=== PATIENT | female | born 1945 | race Caucasian/White ===

== ENCOUNTER 2018-02-14 13:34 | Outpatient (CLI) | payer MEDICARE, BC | END 2018-02-14 13:35 | disposition home or self-care (01) | LOC: BICCT 13:34 | PROVIDERS: ATTEND Psychiatry & Neurology Neurology | DX: M47.816 Spondylosis without myelopathy or radiculopathy, lumbar region (principal); M99.83 Other biomechanical lesions of lumbar region; M43.16 Spondylolisthesis, lumbar region | CPT/HCPCS: 72131 ==

== ENCOUNTER 2018-03-04 14:24 | Outpatient (CLI) | payer MEDICARE, BC ==
--- NOTE | 2018-03-04 15:54 | RAD ---
RIGHT SHOULDER 3 VIEWS: HISTORY: Right shoulder pain. FINDINGS: There are degenerative changes in the acromioclavicular joint. No fracture, dislocation, or bony juan pablo truction is seen. POS: [facility]
--- NOTE | 2018-03-04 16:04 | RAD ---
CERVICAL SPINE FIVE VIEWS: HISTORY: Neck pain. FINDINGS: Degenerative changes are seen, most prominent at the C5-C6 level. No acute fracture, subluxation, or bony destruction is identified. IMPRESSION: Cervical spondylosis. POS: [facility]
== END 2018-03-04 14:25 | disposition home or self-care (01) ==
LOC: RAD-FRANK 14:24
PROVIDERS: ATTEND Nurse Practitioner Family
DX: M54.2 Cervicalgia (principal); M25.511 Pain in right shoulder; M47.892 Other spondylosis, cervical region; M19.011 Primary osteoarthritis, right shoulder
CPT/HCPCS: 72040

== ENCOUNTER 2018-04-12 11:09 | Outpatient (CLI) | payer MEDICARE, BC ==
--- NOTE | 2018-04-12 12:43 | RAD ---
CERVICAL SPINE 5 VIEWS: Lateral views were obtained in the neutral, flexion, and extension positions. FINDINGS: Cervical vertebrae maintain height and alignment. There is loss of disk space and mild to moderate d egenerative changes at C5-6. The other disk spaces are preserved. No significant listhesis or sublu xation noted on flexion or extension. IMPRESSION: Mild to moderate degenerative changes at C5-6 with loss of disk space and hypertrophic spurring at th is level. POS: [facility]
--- NOTE | 2018-04-12 12:45 | RAD ---
LUMBAR SPINE FOUR VIEWS: INDICATIONS: Low back pain. TECHNIQUE: A lateral view was taken in neutral, flexion, and extension positions. FINDINGS: Slight curvature to the left in the AP projection with apex at L1. Mild degenerative changes with mi ld spurring from the lumbar vertebrae. On the lateral view, there is loss of disk space at all levels of the lumbar spine, most prominent at L4-L5 and at L5-S1. There is mild anterolisthesis at L4-L5. Facet hypertrophy is prominent at L4-L 5 and at L5-S1. The anterolisthesis at L4-L5 appears to exacerbate slightly with flexion, changing f rom 5 to 7 mm. IMPRESSION: Moderate degenerative changes of the lumbar spine, with mild anterolisthesis at L4-L5, as noted. POS: [facility]
== END 2018-04-12 11:10 | disposition home or self-care (01) ==
LOC: RAD 11:09
PROVIDERS: ATTEND Physician Assistant Surgical
DX: M51.16 Intervertebral disc disorders with radiculopathy, lumbar region (principal); M43.16 Spondylolisthesis, lumbar region; M47.22 Other spondylosis with radiculopathy, cervical region
CPT/HCPCS: 72050; 72120

== ENCOUNTER 2018-04-26 12:17 | Day surgery (SDC) | payer MEDICARE, BC ==
[2018-04-11 12:08] VITALS: BMI 36.6
[~2018-04-26 12:17] MED LIST: PROPOFOL 200 MG/20 ML VIAL ONE
--- NOTE | 2018-04-26 16:25 | MRI ---
MRI CERVICAL SPINE NONCONTRAST: Date: 04/26/18 HISTORY: 72-year-old female with M54.12 cervical radiculopathy and M54.2 cervicalgia, neck pain. FINDINGS: Vertebral body heights are maintained. No major bone marrow signal abnormality. There are mild and mo derate degenerative facet changes, mostly on the left side, especially C2-3, C3-4, and C7-T1. There i s moderate disc space narrowing at C5-6. No high grade disc space narrowing at any other level. Curre ntly, there are secretions in the oropharynx. No fluid in the prevertebral or retropharyngeal space. No Chiari I malformation. C1-2: No high grade central stenosis. C2-3: No high grade central or neural foraminal stenosis. C3-4: No high grade central spinal canal stenosis. Mild left neural foraminal stenosis. No right alberto ral foraminal stenosis. C4-5: No high grade central stenosis or left neural foraminal stenosis. Mild to moderate right neura l foraminal stenosis due to mild facet osteophytes and small right uncinate process osteophytes. C5-6: Mild, broad based disc-osteophytic bar complex abuts the ventral surface of the spinal cord. M ild to moderate central spinal canal stenosis. Small to moderate size bilateral uncinate process oste ophytes. Mild to moderate bilateral neural foraminal stenosis, left greater than right. C6-7: Broad based disc-osteophytic bar complex encroaching upon anterior aspect of spinal canal caus ing mild to moderate central spinal canal stenosis. Small bilateral uncinate process osteophytes. Mil d bilateral neural foraminal stenosis. C7-T1: No central stenosis. Mild to moderate bilateral neural foraminal stenosis, left greater than right. IMPRESSION: Predominantly mild cervical spondylosis. POS: [facility]
== END 2018-04-26 16:50 | disposition home or self-care (01) ==
LOC: SDC/OP 12:17
PROVIDERS: ATTEND Physician Assistant Surgical
DX: M47.22 Other spondylosis with radiculopathy, cervical region (principal); G20 Parkinson's disease; F40.240 Claustrophobia; I10 Essential (primary) hypertension; F41.9 Anxiety disorder, unspecified; Z79.82 Long term (current) use of aspirin; Z79.899 Other long term (current) drug therapy; Z88.1 Allergy status to other antibiotic agents
CPT/HCPCS: 72141; J2704

== ENCOUNTER 2018-07-31 13:58 | Outpatient (CLI) | payer MEDICARE, BC ==
--- NOTE | 2018-07-31 15:12 | RAD ---
THREE VIEWS OF THE LEFT FOOT: Comparison: None. History: Left foot pain. FINDINGS: Three views of the left foot shows no evidence of acute fracture or dislocation. No degenerative roach ges are seen. Mild soft tissue swelling is present. IMPRESSION: No evidence of acute osseous abnormality. POS: [facility]
== END 2018-07-31 13:59 | disposition home or self-care (01) ==
LOC: RAD-FRANK 13:58
PROVIDERS: ATTEND Nurse Practitioner Family
DX: M79.672 Pain in left foot (principal)

== ENCOUNTER 2019-05-26 15:27 | Outpatient (CLI) | payer MEDICARE, BC ==
--- NOTE | 2019-06-24 14:08 | MMO ---
Bilateral MAMMO Bilat Screen [facility]. CLINICAL HISTORY: Patient is 73 years old and is seen for screening. The patient has no family history of breast cancer. The patient has no personal history of cancer. VIEWS: The views performed were: bilateral craniocaudal with tomosynthesis and bilateral mediolateral oblique with tomosynthesis. This study has been interpreted with the assistance of computer-aided detection. MAMMOGRAM FINDINGS: There are scattered fibroglandular densities. There are benign appearing calcifications seen in both breasts. No prior films were available for comparison. There are no suspicious masses, suspicious calcifications, or new areas of architectural distortion. IMPRESSION: THERE IS NO MAMMOGRAPHIC EVIDENCE OF MALIGNANCY. A ROUTINE FOLLOW-UP MAMMOGRAM IN 1 YEAR IS RECOMMENDED. THE RESULTS OF THIS EXAM WERE SENT TO THE PATIENT. ACR BI-RADS Category 2 - Benign finding MAMMOGRAPHY NOTE: 1. A negative mammogram report should not delay a biopsy if a dominant of clinically suspicious mass is present. 2. Approximately 10% to 15% of breast cancers are not detected by mammography. 3. Adenosis and dense breasts may obscure an underlying neoplasm. Reported by: RICHARD COLON MD Electonically Signed: [id number]
== END 2019-05-26 15:28 | disposition home or self-care (01) ==
LOC: BICMAMMO 15:27
PROVIDERS: ATTEND Nurse Practitioner Family
DX: Z12.31 Encounter for screening mammogram for malignant neoplasm of breast (principal)
CPT/HCPCS: 77063; 77067

== ENCOUNTER 2020-08-05 16:11 | Outpatient (CLI) | payer MEDICARE, BC ==
--- NOTE | 2020-08-05 16:29 | RAD ---
CHEST TWO VIEW: 08/05/20 HISTORY: Shortness of breath. COMPARISON: None. FINDINGS: There is moderate levoscoliosis centered at the thoracolumbar junction. Right upper quadrant abdomina l surgical clips. No confluent air space consolidation, pneumothorax or effusion. No acute osseous ab normality. IMPRESSION: No acute intrathoracic abnormality. POS: [facility]
== END 2020-08-05 16:12 | disposition home or self-care (01) ==
LOC: RAD-FRANK 16:11
PROVIDERS: ATTEND Nurse Practitioner Family
DX: R06.02 Shortness of breath (principal)
CPT/HCPCS: 71046

== ENCOUNTER 2023-03-06 11:13 | Outpatient (CLI) | payer MEDICARE, BC | END 2023-03-06 11:14 | disposition home or self-care (01) | LOC: BICMAMMO 11:13 | PROVIDERS: ATTEND Nurse Practitioner Family | DX: Z12.31 Encounter for screening mammogram for malignant neoplasm of breast (principal) | CPT/HCPCS: 77063; 77067 ==